=== PATIENT | female | born 1935 | race Caucasian/White ===

== ENCOUNTER → 2017-03-12 | Day surgery (SDC) | payer MEDICARE ==
[~2017-03-12] VITALS: Ht 154.9 cm; Wt 57.3 kg
[~2017-03-12] MED LIST: BACTRIM SS 400/1 TAB PO; CALCIUM 600 +1 EAC7 PO; CENTRUM SILVER1 EAC4 PO; EVISTA60 MG PO; FISH OIL + D31 EACH PO; FISH OIL 1,2001 EAC2 PO; GARLIC1000 MG PO; LEVOTHROID(SYN75 MCG PO; LUBRICANT EYE15 M1 OPHTH; MOVE FREE PO; TOPROL XL25 MG PO; VESICARE10 MG PO; ZOCOR80 MG PO
--- NOTE | ~2017-03-12 | OR ---
PATIENT'S NAME: HARINI KING [facility] AGE: 81 Y [address] ROOM: [place] [address] LOCATION: [facility] [place] ADMIT DATE: 03/12/2017 OR/Procedure Report DISCHARGE DATE: FAMILY PHYSICIAN: Dotty Mabry MD ATTENDING PHYSICIAN: Obie Esteves SURGEON: Obie Esteves MD HEALTH ASSISTANT: DATE OF PROCEDURE: 03/12/2017 PREOPERATIVE DIAGNOSES: 1. History of urothelial carcinoma - high grade, noninvasive. 2. 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 3. Urgency with urge incontinence. POSTOPERATIVE DIAGNOSES: 1. History of urothelial carcinoma - high grade, noninvasive. 2. 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 3. Urgency with urge incontinence. 4. Pathology pending. PROCEDURES PERFORMED: 1. Cystoscopy with retrogrades. 2. Bladder biopsy. ANESTHESIA: Sedation. INDICATION: This is a 81-year-old lady with the above-noted diagnoses. She was last scoped in December. She has had high-grade but noninvasive disease. With her history of uterine cancer and radiation, she has had poor healing. She has a small bladder capacity. She has minimal compliance. At her last surveillance cystoscopy with the flexible scope, we found a lot of debris. She bleeds easily with bladder distention. Her last biopsies revealed "inflammation, ulceration, and necrosis." We had made arrangements for planned cystoscopy under anesthesia with bladder biopsies of some of the inflammatory appearing areas. It was difficult to sort out whether she has ongoing radiation changes versus recurrent high-grade disease. We will also check her upper tracts. DESCRIPTION OF PROCEDURE: Having obtained her informed consent, the patient was taken to the operating room. She was prepped and draped sterilely and in lithotomy position. IV sedation is administered. She has a mild prolapse. The 21-Scottish scope was passed. The urethra was unremarkable. The bladder itself as previous is noncompliant. She has a number of oozing areas. She PATIENT'S NAME: HARINI KING [facility] AGE: 81 Y [address] ROOM: [place] [address] LOCATION: [facility] [place] ADMIT DATE: 03/12/2017 OR/Procedure Report DISCHARGE DATE: FAMILY PHYSICIAN: Dotty Mabry MD ATTENDING PHYSICIAN: Obie Esteves Ken has scarring on the left side from previous resection. She does not have as much necrotic debris associated with it. Orifices are abnormal in location based on the bladder shape and the prior radiation. Her orifices are up toward the dome posteriorly. She does not have a recognizable trigone. Orifices were gaping. It took some time to identify them. I then got a cone- tipped catheter into the left one. Contrast was instilled. She has some fullness, but there was no evidence of filling defect. Interestingly, while I was injecting the left side, we got contrast in the bladder and that refluxed into her right side and two sides are symmetric. To summarize, she has bilateral hydroureteronephrosis which I would characterize as mild and it is all the way to the level of the bladder consistent with her history. Cold cup biopsy forceps were placed. Adult [employer] Education Teacher areas were biopsied. I then used the Bugbee to cauterize the biopsy sites. The biopsies were sent for specimen. The patient tolerated the procedure well. Blood loss was minimal. The above- noted specimen was sent. The patient returned to the outpatient recovery, awake and in stable condition. OBIE ESTEVES MD /modl /[id number] CC: Dotty Mabry MD d: 03/12/17 2333 t: 03/16/17 1520, OPERATIVE SUMMARY
[2017-03-12 12:19] LABS: BASOPHIL % 0.7 %; EOSINOPHIL # 0.1 K/uL (0.0-0.5); EOSINOPHIL % 1.7 %; HEMATOCRIT 43.9 % (33.0-46.0); HEMOGLOBIN 14.7 g/dL (10.0-15.0); IMMATURE GRANULOCYTE % 0.5 %; LYMPHOCYTE # 1.9 K/uL (0.8-4.0); LYMPHOCYTE % 30.9 %; MCH 31.2 pg (27.0-34.0); MCHC 33.5 gm/dL (32.0-36.5); MCV 93.2 fl (83.0-98.0); MONOCYTE # 0.5 K/uL (0.0-1.0); MONOCYTE % 8.6 %; MPV 10.8 fl (9.4-12.4); NEUTROPHIL # (ANC) 3.5 K/uL (1.8-7.8); NEUTROPHIL % 57.6 %; NRBC % 0 /100WBC (0-0.00); PLATELET COUNT 214 K/uL (150-450); RBC 4.71 M/uL (3.50-5.50); RDW-CV 13.4 % (11.9-14.6); WBC 6.1 K/uL (4.0-11.0)
[2017-03-12 13:07] LABS: ALBUMIN 3.2 gm/dL (3.5-5.0); CALCIUM 8.6 mg/dL (8.5-10.5); TOTAL BILIRUBIN 0.5 mg/dL (0.0-1.5); TOTAL PROTEIN 6.4 g/dL (6.0-8.4)
== END | disposition disaster alternative care site (69) ==
LOC: GPOC 03-08 09:00 → GSDC 09:00
PROVIDERS: Urology
PROC: BT14YZZ Fluoroscopy of Kidneys, Ureters and Bladder using Other Contrast (ICD-10-PCS; principal; 2017-03-12)
PROC: 0TBB8ZX Excision of Bladder, Via Natural or Artificial Opening Endoscopic, Diagnostic (ICD-10-PCS; 2017-03-12)
DX: N30.00 Acute cystitis without hematuria (principal); N30.20 Other chronic cystitis without hematuria; N32.89 Other specified disorders of bladder; N39.41 Urge incontinence; Z85.51 Personal history of malignant neoplasm of bladder; Z85.42 Personal history of malignant neoplasm of other parts of uterus; Z88.0 Allergy status to penicillin
CPT/HCPCS: J1956; J7030